=== PATIENT | male | born 1945 | race African-American/Black ===

== ENCOUNTER 2016-09-21 12:12 | Emergency (ER) | payer MEDICARE, MEDICAID ==
[~2016-09-21] VITALS: Ht 154.9 cm; Wt 92.0 kg
[2016-09-21 14:59] VITALS: BP 169/88
[2016-09-21] MEDS ORDERED: TRAMADOL 50MG TABLET PO ONE (15:00)
== END 2016-09-21 15:40 | disposition home or self-care (01) ==
LOC: ER 13:17
DX: M25.552 Pain in left hip (principal); M19.90 Unspecified osteoarthritis, unspecified site; E11.9 Type 2 diabetes mellitus without complications; R10.32 Left lower quadrant pain; I10 Essential (primary) hypertension; M10.9 Gout, unspecified; Z48.01 Encounter for change or removal of surgical wound dressing
CPT/HCPCS: 99283